=== PATIENT | male | born 1990 | race Caucasian/White ===

== ENCOUNTER 2021-06-20 22:45 | Emergency (ER) | payer SELFPAY ==
[~2021-06-20] VITALS: Ht 177.8 cm; Wt 86.2 kg
--- NOTE | 2021-06-20 22:59 | NUR ---
PATIENT BIBSELF FOR RIGHT ANKLE AND RIGHT FIFTH TOE LACERATION S/P STEP ON A BIG SHEET OF GLASS. PATIENT STATED TDAP NOT UPDATED. PATINET IS A/O X 4, RR EVEN AND UNLABORED, NO SOB NOTED. PATIENT CONNECTED TO MONITOR.
[2021-06-20] MEDS ORDERED: TDAP [DIPH/PERTUSSIS/TET] 0.5 ML VIAL IM ONE ×2 (23:00→23:11)
--- NOTE | 2021-06-20 23:20 | NUR ---
RAD AT BEDSIDE
[2021-06-20] MEDS ORDERED: LIDOCAINE 1%-EPI 1:100,000 20 ML VIAL ONE (23:34)
--- NOTE | 2021-06-20 23:35 | NUR ---
EMT AT BEDSIDE, WOUND Tx
--- NOTE | 2021-06-21 00:43 | NUR ---
Patient discharged to home in stable condition. Written and verbal after care instructions given. Patient verbalizes understanding of instruction.
[2021-06-21 00:44] VITALS: BP 128/62
== END 2021-06-21 00:44 | disposition home or self-care (01) ==
LOC: ER 22:55
DX: S81.811A Laceration without foreign body, right lower leg, initial encounter (principal); S91.311A Laceration without foreign body, right foot, initial encounter; W22.8XXA Striking against or struck by other objects, initial encounter; Y93.89 Activity, other specified; Y92.89 Other specified places as the place of occurrence of the external cause; Y99.8 Other external cause status
CPT/HCPCS: 12004; 73590; 73630; 90471; 90715; 99284; A6403; J3490